=== PATIENT | female | born 1970 | race African-American/Black ===

== ENCOUNTER 2018-09-04 14:51 | Emergency (ER) | payer OTHER ==
--- NOTE | 2018-09-04 15:58 | ED ---
Lower Extremity - HPI Summary HPI Summary: 48-year-old female presents with left leg swelling for the past 3 weeks. States it was bilateral but improved after she started taking a water pill per patient. she states the past couple days the swelling has increased again in the left leg. She admits to pain in the posterior left calf pain. She admits to some occasional numbness on top of her cadet. She denies any weakness. No difficulties ambulating. No injury. Has a family history of blood clots. - History of Current Complaint Chief Complaint: EDExtremityLower Stated Complaint: LEFT LEG PAIN/SWELLING PER PT Time Seen by Provider: 09/04/18 15:50 Pain Intensity: 10 - Allergies/Home Medications Allergies/Adverse Reactions: Allergies Allergy/AdvReac Type Severity Reaction Status Date / Time divalproex sodium Allergy Itching Verified 09/04/18 14:59 [From Depakote] Penicillins Allergy Itching Verified 09/04/18 14:59 PMH/Surg Hx/FS Hx/Imm Hx Infectious Disease History: No Infectious Disease History: Denies: Traveled Outside the [place] in Last 30 Days - Social History Alcohol Use: None Substance Use Type: Reports: Cocaine Substance Use Comment - Amount & Last Used: in rehab for crack cocaine Smoking Status (MU): Never Smoked Tobacco Review of Systems Negative: Fever Negative: Chest Pain Negative: Shortness Of Breath Positive: Myalgia - left leg, Edema - left leg All Other Systems Reviewed And Are Negative: Yes Physical Exam Triage Information Reviewed: Yes Vital Signs On Initial Exam: Initial Vitals Temp Pulse Resp BP Pulse Ox 98.3 F 92 16 138/83 97 09/04/18 14:55 09/04/18 14:55 09/04/18 14:55 09/04/18 14:55 09/04/18 14:55 Vital Signs Reviewed: Yes Appearance: Positive: Well-Appearing Skin: Positive: Warm, Dry Head/Face: Positive: Normal Head/Face Inspection Eyes: Positive: Normal, Conjunctiva Clear ENT: Positive: Pharynx normal Respiratory/Lung Sounds: Positive: Clear to Auscultation, Breath Sounds Present Cardiovascular: Positive: Normal, RRR Musculoskeletal: Positive: Strength/ROM Intact - left leg, Edema Left - +1, Other - good pulses, soft compartments, tenderness posterior left thigh,. Negative: Lisa Sign Left Neurological: Positive: Normal Psychiatric: Positive: Normal Diagnostics - Vital Signs Vital Signs Temp Pulse Resp BP Pulse Ox 09/04/18 14:55 98.3 F 92 16 138/83 97 - Laboratory Result Diagrams: 09/04/18 16:14 09/04/18 16:14 Lab Statement: Any lab studies that have been ordered have been reviewed, and results considered in the medical decision making process. - Ultrasound No standard instances Ultrasound Interpretation Completed By: Radiologist Summary of Ultrasound Findings: IMPRESSION: #. No evidence for above-knee LEFT lower extremity deep venous thrombosis. #. Segmental regions of occlusive or near occlusive thrombosis of the paired LEFT peroneal. calf veins. Lower Extremity Course/Dx - Course Course Of Treatment: 48-year-old female presents with left leg swelling for the past 3 weeks. States it was bilateral but improved after she started taking a water pill per patient. she states the past couple days the swelling has increased again in the left leg. She admits to pain in the posterior left calf pain. She admits to some occasional numbness on top of her cadet. She denies any weakness. No difficulties ambulating. No injury. Has a family history of blood clots. On exam has mild edema to left lower leg. Full range of motion of leg. Neurovascularly intact. Tenderness over posterior left calf. compartments are soft. has thrombosis in peroneal. patient is concerned about blood thinners as has a history of seizure and hit heads a couple times a month. discussed with santiago who said needs blood thinners. discussed risks vs benefits and patient agrees to blood thinners. discussed will add on xarleto. told to follow up with heme or primary for continued care. patient understand and agrees with plan. - Diagnoses Differential Diagnosis/HQI/PQRI: Positive: Compartment Syndrome, DVT, Sprain Provider Diagnoses: DVT (deep venous thrombosis) Discharge - Sign-Out/Discharge Documenting (check all that apply): Patient Departure Patient Received Moderate/Deep Sedation with Procedure: No - Discharge Plan Condition: Good Disposition: HOME Prescriptions: Rivaroxaban TAB(*) [Xarelto 15 mg(*)] 15 mg PO BID #41 tab Patient Education Materials: Deep Vein Thrombosis (ED) Referrals: No Primary Care Phys,NOPCP [Primary Care Provider] - Bryce Dickey MD [Medical Doctor] - Additional Instructions: Take xarelto twice a day for 21 days then once a day Take with food Avoid Aspirin or ibuprofen, use Tylenol for pain Follow up with primary care physician for continued care or hematology Return to ED if develop any chest pain or shortness of breath, or fall and hit head or any new or worsening symptoms - Billing Disposition and Condition Condition: GOOD Disposition: Home
[2018-09-04 16:23] LABS: ABS Eosinophils 0.2 10^3/ul (0-0.6); ABS Lymphocytes 2.6 10^3/ul (1.0-4.8); ABS Monocytes 0.5 10^3/ul (0-0.8); ABS Neutrophils 3.2 10^3/ul (1.5-7.7); Eosinophil % 2.7 %; Hematocrit 35 % (35-47); Hemoglobin 11.2 g/dL (12.0-16.0); Lymphocyte % 39.8 %; Mean Corpuscular HGB Conc 32 g/dL (31-36); Mean Corpuscular Hemoglobin 29 pg (27-31); Mean Corpuscular Volume 89 fL (80-97); Nucleated Red Blood Cells % 0.1; Platelet Count 355 10^3/uL (150-450); Red Blood Count 3.91 10^6 /uL (3.70-4.87); Red Cell Distribution Width 14 % (10.5-15); White Blood Count 6.5 10^3/uL (3.5-10.8)
[2018-09-04 16:34] LABS: Activated Partial Thrombo Time 33.4 seconds (26.0-36.3); INR 0.98 (0.82-1.09)
[2018-09-04 16:43] LABS: Albumin 3.8 g/dL (3.2-5.2); Albumin/Globulin Ratio 1.1 (1-3); BUN/Creatinine Ratio 10.1 (8-20); Calcium 8.9 mg/dL (8.6-10.3); EGFR African American 64.3 (>60); EGFR Non-African American 53.1 (>60); Globulin 3.4 g/dL (2-4); Potassium 4.2 mmol/L (3.5-5.0); Total Bilirubin 0.2 mg/dL (0.2-1.0); Total Protein 7.2 g/dL (6.4-8.9)
[2018-09-04 16:48] LABS: HCG Pregnancy 0.63 mIU/mL
[2018-09-04] MEDS ORDERED: Rivaroxaban TAB(*) 15 MG PO ONE (18:51)
[2018-09-04 19:16] VITALS: BP 156/97
== END 2018-09-04 19:14 | disposition home or self-care (01) ==
LOC: ED 14:51
DX: I82.4Z2 Acute embolism and thrombosis of unspecified deep veins of left distal lower extremity (principal); Z88.0 Allergy status to penicillin
CPT/HCPCS: 36415; 80053; 84702; 85025; 85610; 85730; 99282

== ENCOUNTER 2018-09-10 10:08 | Emergency (ER) | payer OTHER ==
[2018-09-10] MEDS ORDERED: NS 0.9% 1000 ML** 1,000 ML IV ONE (10:37)
--- NOTE | 2018-09-10 10:44 | ED ---
Dizziness - HPI Summary HPI Summary: Pt is a 48 y/o F presenting to the ED brought in by EMS for dizziness. The pt has hx of seizures, usually one a month, and this morning she took her medication at 0800, and then thinks she had a seizure because she came to sitting on her bed. She normally feels fatigued and lightheaded in her postictal state, which she believes is whats happening right now. She reports lightheadedness, dizziness, and fatigue. She denies CP and SOB. She is currently a resident at [facility] d/t addiction to crack. She has used rehab services before but relapsed, and has been clean since May of this year. She has hx of DM, HTN, and HLD. She is on Keppra and Topomax for her seizures. - History Of Current Complaint Chief Complaint: EDDizziness Stated Complaint: DIZZY, WEAK PER EMS Hx Obtained From: Patient Last Known Well Date: 09/10/18 0800 Onset/Duration: Resolved, Suddenly Timing: Minutes Severity Initially: Moderate Severity Currently: Mild Character: Lightheaded, Dizzy Aggravating Factor(s): Nothing Alleviating Factor(s): Nothing Associated Signs And Symptoms: Negative: Chest Pain, SOB - Allergies/Home Medications Allergies/Adverse Reactions: Allergies Allergy/AdvReac Type Severity Reaction Status Date / Time divalproex sodium Allergy Itching Verified 09/04/18 14:59 [From Depakote] Penicillins Allergy Itching Verified 09/04/18 14:59 Home Medications: Home Medications Acetaminophen TAB* [Tylenol TAB*] 650 mg PO Q6H PRN 09/10/18 [History Confirmed 09/10/18] Acetylcysteine [Nac] 600 mg PO QID 09/10/18 [History Confirmed 09/10/18] Atorvastatin* [Lipitor*] 10 mg PO BEDTIME 09/10/18 [History Confirmed 09/10/18] Calcium Carbonate CHEW TAB* [Tums*] 500 - 1,000 mg PO BID 09/10/18 [History Confirmed 09/10/18] Cholecalciferol (Vitamin D3) [Vitamin D3] 2,000 unit PO DAILY 09/10/18 [History Confirmed 09/10/18] Ciclopirox [[place] Nail Lacquer] 8 % TOPICAL BEDTIME 09/10/18 [History Confirmed 09/10/18] Escitalopram * [Lexapro *] 20 mg PO DAILY 09/10/18 [History Confirmed 09/10/18] Folic Acid TAB* [Folvite TAB*] 1 mg PO DAILY 09/10/18 [History Confirmed ] Gabapentin CAP(*) [Neurontin 300 CAP(*)] 300 mg PO BEDTIME 09/10/18 [History Confirmed 09/10/18] Loperamide CAP* [Imodium CAP*] 2 - 4 mg PO Q4H PRN 09/10/18 [History Confirmed 09/10/18] Melatonin 5 mg PO BEDTIME PRN 09/10/18 [History Confirmed 09/10/18] Multivitamins/Minerals TAB* [Theragran/minerals TAB*] 1 tab PO DAILY 09/10/18 [ History Confirmed 09/10/18] Polyethylene Glycol 3350* [Miralax*] 17 gm PO DAILY PRN 09/10/18 [History Confirmed 09/10/18] Thiamine TAB* [Vitamin B-1 TAB*] 100 mg PO DAILY 09/10/18 [History Confirmed 01/21] Topiramate TAB(*) [Topamax 25 MG tab] 75 mg PO BID 09/10/18 [History Confirmed 09/10/18] diPHENhydraMINE PO* [Benadryl PO 25 MG TAB*] 50 mg PO DAILY PRN 09/10/18 [ History Confirmed 09/10/18] guaiFENesin ER TAB [Mucinex*] 600 - 1,200 mg PO BID 09/10/18 [History Confirmed 09/10/18] levETIRAcetam TAB* [Keppra TAB*] 1,500 mg PO BID 09/10/18 [History Confirmed 01/21] traZODone TAB* [Desyrel TAB*] 200 mg PO BEDTIME 09/10/18 [History Confirmed 01/21] PMH/Surg Hx/FS Hx/Imm Hx Previously Healthy: No Endocrine/Hematology History: Reports: Hx Diabetes Cardiovascular History: Reports: Hx Hypercholesterolemia, Hx Hypertension Psychiatric History: Reports: Hx Substance Abuse Infectious Disease History: No Infectious Disease History: Denies: Traveled Outside the [place] in Last 30 Days - Family History Known Family History: Negative: Renal Disease - Social History Lives: [facility] Alcohol Use: None Hx Substance Use: Yes Substance Use Type: Reports: Cocaine Substance Use Comment - Amount & Last Used: in rehab for crack cocaine Hx Tobacco Use: No Smoking Status (MU): Never Smoked Tobacco Review of Systems Positive: Fatigue Negative: Chest Pain Negative: Shortness Of Breath Neurological: Other - lightheaded, dizzy All Other Systems Reviewed And Are Negative: Yes Physical Exam - Summary Physical Exam Summary: GENERAL: Patient is a well-developed and nourished female who is lying comfortable in the stretcher. Patient is not in any acute respiratory distress. HEAD AND FACE: Normocephalic EYES: PERRLA, EOMI x 2. EARS: Hearing grossly intact. MOUTH: Oropharynx within normal limits. NECK: Supple, trachea is midline, no adenopathy, no JVD, no carotid bruit. CHEST: Symmetric, no tenderness at palpation LUNGS: Clear to auscultation bilaterally. No wheezing or crackles. CVS: Regular rate and rhythm, S1 and S2 present, no murmurs or gallops appreciated. ABDOMEN: Soft, non-tender. Bowel sounds are normal. No abnormal abdominal pulsations. EXTREMITIES: Full ROM in all major joints, no edema, no cyanosis or clubbing. NEURO: Alert and oriented x 3. No acute neurological deficits. Speech is normal and follows commands. Cranial nerves II-XII grossly intact, no dysmetria finger to nose, nml heel to cadet SKIN: Dry and warm Triage Information Reviewed: Yes Vital Signs On Initial Exam: Initial Vitals Temp Pulse Resp BP Pulse Ox 97.0 F 91 20 151/102 93 09/10/18 10:10 09/10/18 10:10 09/10/18 10:10 09/10/18 10:10 09/10/18 10:10 Vital Signs Reviewed: Yes - Keith Coma Scale Best Eye Response: 4 - Spontaneous Best Motor Response: 6 - Obeys Commands Best Verbal Response: 5 - Oriented Coma Scale Total: 15 Diagnostics - Vital Signs Vital Signs Temp Pulse Resp BP Pulse Ox 09/10/18 10:10 97.0 F 91 20 151/102 93 - Laboratory Result Diagrams: 09/10/18 10:26 09/10/18 10:26 Lab Statement: Any lab studies that have been ordered have been reviewed, and results considered in the medical decision making process. - Radiology CXR Radiology Interpretation Completed By: Radiologist Summary of Radiographic Findings: No radiographic evidence for acute cardiopulmonary abnormality on this portable chest x-ray. ED physician has reviewed this report. - CT Brain CT CT Interpretation Completed By: Radiologist Summary of CT Findings: Normal CT of the brain. ED physician has reviewed this report. - EKG 1025 Cardiac Rate: NL - 88bpm EKG Rhythm: Sinus Rhythm ST Segment: Normal Ectopy: None Summary of EKG Findings: EKG at 1025 shows NSR at 88bpm with nml axis and no acute changes. Re-Evaluation - Re-Evaluation 1st re-eval Re-Evaluation Time: 12:50 Change: Improved Comment: Pt reports she feels much better. Dizzy Course/Dx - Course Course Of Treatment: Pt is a 48 y/o F presenting to the ED brought in by EMS for dizziness. The pt has a notable hx of seizures that she usually experiences about once a month, and believes she had one this morning after taking her medication at around 0800. She currenly reports lightheadedness, dizziness, and fatigue. She denies CP and SOB. The pt notes that she is a current resident of [facility] d/t prior addiction to crack, and that she has been clean since May. She has been to rehab services once before. She currently takes Keppra and Topomax. EKG at 1025 shows NSR at 88bpm with nml axis and no acute changes. Pt s hematology shows Hgb of 11.9 and MPV of 7.0. Her INR is 1.38 and her APTT is 41.7. Her chemistry shows a Creatinine of 1.17, Glucose of 171, and Magnesium of 1.8. All other lab work performed is nml. Brain CT shows a normal CT of the brain. CXR shows: No radiographic evidence for acute cardiopulmonary abnormality on this portable chest x-ray. The pt reports she feels much better as of 1250. Her urine results are normal. She will be d/c'ed home with a dx of dizziness. I discussed results with patient, and she reports feeling better. She is hemodynamically stable and safe for discharge. Strict return precautions given and she will otherwise follow up with her PCP. - Diagnoses Provider Diagnoses: Dizziness Discharge - Sign-Out/Discharge Documenting (check all that apply): Patient Departure Patient Received Moderate/Deep Sedation with Procedure: No - Discharge Plan Condition: Stable Disposition: HOME Referrals: [facility] [Outside] Additional Instructions: Please follow up with your primary care provider within the next 1-3 days. Return to the emergency department with any new or worsening symptoms. - Billing Disposition and Condition Condition: STABLE Disposition: Home - Attestation Statements Document Initiated by Scribe: Yes Documenting Scribe: Earlene Gonzalez Provider For Whom Scribe is Documenting (Include Credential): Steve Bergeron MD. Scribe Attestation: Earlene Shepard, sydneyed for Steve Bergeron MD. on 09/10/18 at 1957. Scribe Documentation Reviewed: Yes Provider Attestation: The documentation as recorded by the scribeEarlene accurately reflects the service I personally performed and the decisions made by , Gonzalo Bergeron MD. Status of Scribe Document: Viewed
[2018-09-10 10:48] LABS: ABS Eosinophils 0.1 10^3/ul (0-0.6); ABS Lymphocytes 1.8 10^3/ul (1.0-4.8); ABS Monocytes 0.4 10^3/ul (0-0.8); ABS Neutrophils 4.1 10^3/ul (1.5-7.7); Eosinophil % 2.2 %; Hematocrit 36 % (35-47); Hemoglobin 11.9 g/dL (12.0-16.0); Lymphocyte % 28.2 %; Mean Corpuscular HGB Conc 33 g/dL (31-36); Mean Corpuscular Hemoglobin 29 pg (27-31); Mean Corpuscular Volume 89 fL (80-97); Nucleated Red Blood Cells % 0.2; Platelet Count 385 10^3/uL (150-450); Red Blood Count 4.08 10^6 /uL (3.70-4.87); Red Cell Distribution Width 14 % (10.5-15); White Blood Count 6.5 10^3/uL (3.5-10.8)
[2018-09-10 10:55] LABS: Activated Partial Thrombo Time 41.7 seconds (26.0-36.3); INR 1.38 (0.82-1.09)
[2018-09-10 11:05] LABS: Albumin 3.8 g/dL (3.2-5.2); Albumin/Globulin Ratio 1.1 (1-3); BUN/Creatinine Ratio 13.7 (8-20); Calcium 9.1 mg/dL (8.6-10.3); EGFR African American 59.2 (>60); Globulin 3.6 g/dL (2-4); Magnesium 1.8 mg/dL (1.9-2.7); Potassium 4.5 mmol/L (3.5-5.0); Total Bilirubin 0.2 mg/dL (0.2-1.0); Total Protein 7.4 g/dL (6.4-8.9)
[2018-09-10] MEDS ORDERED: Ondansetron INJ* 2 MG/ML VIAL IV ONE (11:09)
[2018-09-10 13:40] LABS: Urine Appearance Clear; Urine Bilirubin Negative (Negative); Urine Blood Negative (Negative); Urine Color Straw; Urine Glucose 1+(50 mg/dL) (Negative); Urine Ketones Negative (Negative); Urine Nitrite Negative (Negative); Urine Protein Negative (Negative); Urine Specific Gravity 1.008 (1.010-1.030); Urine Urobilinogen Negative (Negative)
[2018-09-10 13:57] LABS: Urine Bacteria Absent (Absent); Urine Red Blood Cell Trace(0-2/hpf) (Absent); Urine Squamous Epithelial Cell Present (Absent); Urine White Blood Cell Absent (Absent)
[2018-09-10 14:09] VITALS: BP 154/99
[2018-09-11 16:52] LABS: Levetiracetam 59.7 mcg/mL
[2018-09-12 08:57] LABS: Topiramate 5.9 mcg/mL
== END 2018-09-10 14:13 | disposition home or self-care (01) ==
LOC: ED 10:08
DX: R42 Dizziness and giddiness (principal); I10 Essential (primary) hypertension; E11.9 Type 2 diabetes mellitus without complications; E78.00 Pure hypercholesterolemia, unspecified; Z88.0 Allergy status to penicillin; Z88.8 Allergy status to other drugs, medicaments and biological substances; Z79.899 Other long term (current) drug therapy
CPT/HCPCS: 36415; 70450; 71045; 80053; 80177; 80201; 81003; 83605; 83735; 83880; 84484; 85025; 85610; 85730; 87040; 93005; 96361; 96374; 99283; J2405

== ENCOUNTER 2018-10-04 18:59 | Emergency (ER) | payer OTHER ==
[2018-10-04] MEDS ORDERED: Ondansetron ODT TAB* 4 MG SL ONE (19:11)
--- NOTE | 2018-10-04 19:18 | ED ---
Neurological HPI - HPI Summary HPI Summary: This patient is a 48 year old F brought to ED via EMS with a chief complaint of seizure at 1700 today. Patient was at [facility] when the seizure occurred. After the seizure, she was confused and not sure where she was. In the room, patient reports feeling better and more aware, but has a headache. Recently, the patient has been waking up feeling sick and vomiting. She has not seen neuro since last December. Patient states this is her 2nd seizure since [facility] treatment in August. The patient was recently switched from 5 to 10mg of Gabapentin. She is also on Xarelto for two DVTs. Patient takes [id number] Keppra and 500 Topamax. The patient rates the pain 6/10 in severity. Symptoms aggravated by nothing. Symptoms alleviated by nothing. Patient reports HIGGINS, vomiting, diarrhea, nausea. PMHx of DM, HLD, HTN, seizures. PSHx of hysterectomy. FHx of no renal disease. Patient does not use alcohol or tobacco but is in rehab for crack cocaine. - History of Current Complaint Stated Complaint: SEIZURE PER EMS Time Seen by Provider: 10/04/18 19:05 Hx Obtained From: Patient Onset/Duration: Sudden Onset, Started hours ago - 1700 today, Resolved Number of Seizures: 1 Pain Intensity: 6 Pain Scale Used: 0-10 Numeric Character: Other: - N/V/D Aggravating: Nothing Alleviating: Nothing Associated Signs and Symptoms: Positive: Headache, Nausea/Vomiting, Diarrhea Related Hx: Seizure - Allergy/Home Medications Allergies/Adverse Reactions: Allergies Allergy/AdvReac Type Severity Reaction Status Date / Time divalproex sodium Allergy Itching Verified 09/04/18 14:59 [From Depakote] Penicillins Allergy Itching Verified 09/04/18 14:59 PMH/Surg Hx/FS Hx/Imm Hx Previously Healthy: No Endocrine/Hematology History: Reports: Hx Diabetes Cardiovascular History: Reports: Hx Hypercholesterolemia, Hx Hypertension Neurological History: Reports: Hx Seizures Psychiatric History: Reports: Hx Substance Abuse - Surgical History Surgery Procedure, Year, and Place: hysterectomy. mesh in right breast - Family History Known Family History: Negative: Renal Disease - Social History Alcohol Use: None Hx Substance Use: Yes Substance Use Type: Reports: Cocaine Substance Use Comment - Amount & Last Used: in rehab for crack cocaine Hx Tobacco Use: No Smoking Status (MU): Never Smoked Tobacco Review of Systems Positive: Vomiting - Recently, Diarrhea, Nausea Positive: Headache All Other Systems Reviewed And Are Negative: Yes Physical Exam - Summary Physical Exam Summary: Appearance: Well-appearing, Well-nourished, lying in bed comfortable Skin: Warm, dry, no obvious rash Eyes: sclera anicteric, no conjunctival pallor ENT: mucous membranes moist Neck: deferred Respiratory: No signs of respiratory distress Cardiovascular: Appears well perfused, pulses are nml Abdomen: deferred Musculoskeletal: Moving all 4 extremities without obvious discomfort Neurological: Awake and alert, mentation is normal, speech is fluent and appropriate Psychiatric: affect is normal, does not appear anxious or depressed Triage Information Reviewed: Yes Vital Signs On Initial Exam: Initial Vitals Temp Pulse Resp BP Pulse Ox 98.3 F 86 16 137/60 96 10/04/18 19:03 10/04/18 19:03 10/04/18 19:03 10/04/18 19:03 10/04/18 19:03 Vital Signs Reviewed: Yes Diagnostics - Laboratory Result Diagrams: 10/04/18 19:23 10/04/18 19:23 Lab Statement: Any lab studies that have been ordered have been reviewed, and results considered in the medical decision making process. Course/Dx - Course Course Of Treatment: This patient is a 48 year old F brought to ED via EMS with a chief complaint of seizure at 1700 today. In the ED course, patient received Tylenol and Zofran. Blood work obtained. Patient will be discharged home wt dx of seizure and gastroenteritis. Patient understands and agrees with this plan. - Diagnoses Provider Diagnoses: Seizure, Gastroenteritis Discharge - Sign-Out/Discharge Documenting (check all that apply): Patient Departure - Discharge Patient Received Moderate/Deep Sedation with Procedure: No - Discharge Plan Condition: Stable Disposition: HOME Prescriptions: Ondansetron ODT TAB* [Zofran 4 MG Odt TAB*] 8 mg PO Q6H PRN #15 tab.odt PRN Reason: Nausea Patient Education Materials: Gastroenteritis (ED), Epilepsy (ED) Referrals: [facility] [Outside] - 1 Week - Billing Disposition and Condition Condition: STABLE Disposition: Home - Attestation Statements Document Initiated by Scribe: Yes Documenting Scribe: Jag Patel Provider For Whom Scribe is Documenting (Include Credential): Abdirizak Lujan MD Scribe Attestation: Jag Shepard, scribed for Abdirizak Lujan MD on 10/05/18 at 0313. Scribe Documentation Reviewed: Yes Provider Attestation: The documentation as recorded by the scribe, Jag Patel accurately reflects the service I personally performed and the decisions made by me, Abdirizak Lujan MD Status of Scribe Document: Viewed
[2018-10-04] MEDS ORDERED: Acetaminophen TAB* 325 MG PO ONE (19:44)
[2018-10-04 20:07] LABS: ABS Eosinophils 0.2 10^3/ul (0-0.6); ABS Lymphocytes 2.4 10^3/ul (1.0-4.8); ABS Monocytes 0.5 10^3/ul (0-0.8); ABS Neutrophils 3.3 10^3/ul (1.5-7.7); Eosinophil % 2.6 %; Hematocrit 35 % (35-47); Hemoglobin 11.3 g/dL (12.0-16.0); Lymphocyte % 37.2 %; Mean Corpuscular HGB Conc 32 g/dL (31-36); Mean Corpuscular Hemoglobin 29 pg (27-31); Mean Corpuscular Volume 88 fL (80-97); Mean Platelet Volume 7.4 fL (7.4-10.4); Nucleated Red Blood Cells % 0.3; Platelet Count 369 10^3/uL (150-450); Red Blood Count 3.94 10^6 /uL (3.70-4.87); Red Cell Distribution Width 14 % (10.5-15); White Blood Count 6.4 10^3/uL (3.5-10.8)
[2018-10-04 20:11] LABS: ALT 10 U/L (7-52); AST 20 U/L (13-39); Albumin 3.8 g/dL (3.2-5.2); Albumin/Globulin Ratio 1.1 (1-3); Alkaline Phosphatase 75 U/L (34-104); Anion Gap 4 mmol/L (2-11); BUN/Creatinine Ratio 10.6 (8-20); Blood Urea Nitrogen 12 mg/dL (6-24); CO2 Carbon Dioxide 28 mmol/L (22-32); Chloride 105 mmol/L (101-111); EGFR African American 61.7 (>60); Globulin 3.4 g/dL (2-4); Glucose 171 mg/dL (70-100); Potassium 4.7 mmol/L (3.5-5.0); Sodium 137 mmol/L (135-145); Total Protein 7.2 g/dL (6.4-8.9)
[2018-10-04 20:18] LABS: HCG Pregnancy < 0.60 mIU/mL
[2018-10-04 21:22] VITALS: BP 138/92
== END 2018-10-04 21:40 | disposition home or self-care (01) ==
LOC: ED 18:59
DX: G40.909 Epilepsy, unspecified, not intractable, without status epilepticus (principal); K52.9 Noninfective gastroenteritis and colitis, unspecified; R51 Headache; R11.2 Nausea with vomiting, unspecified; R19.7 Diarrhea, unspecified; Z88.0 Allergy status to penicillin; E11.9 Type 2 diabetes mellitus without complications; I10 Essential (primary) hypertension; E78.5 Hyperlipidemia, unspecified; F14.11 Cocaine abuse, in remission
CPT/HCPCS: 36415; 80053; 84702; 85025; 99285; A9270-GY